=== PATIENT | female | born 2000 | race Caucasian/White ===

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

== ENCOUNTER 2024-03-24 15:13 | Emergency (ER) | payer OTHER, BC ==
[~2024-03-24] VITALS: Ht 175.3 cm; Wt 61.2 kg
[2024-03-24 15:21] VITALS: BP_SYST 112; PULSE 67; RESP 18; TEMP 98.3; O2SAT 97
[2024-03-24] MEDS ORDERED: LIDOCAINE 1%, 20 ML MDV 20 ML ONE (15:38)
[2024-03-24] MEDS: LIDOCAINE 1% 10 MG/ML, 20 ML MDV INJ ONE (15:45)
[2024-03-24] MEDS: DIPHTH,PERTUSS(ACELL),TET VAC 0.5 ML VIAL (Tdap) I.M. ONE (16:11)
[2024-03-24 16:23] VITALS: BP_SYST 116; PULSE 69; RESP 16; TEMP 98; O2SAT 98
== END 2024-03-24 16:20 | disposition home or self-care (01) ==
LOC: SED 15:13
DX: S61.212A Laceration without foreign body of right middle finger without damage to nail, initial encounter (principal); Z23 Encounter for immunization; W26.8XXA Contact with other sharp object(s), not elsewhere classified, initial encounter; Y93.89 Activity, other specified; Y92.89 Other specified places as the place of occurrence of the external cause; Y99.8 Other external cause status
CPT/HCPCS: 90715; 99283; J2001

== ENCOUNTER 2024-03-27 11:55 | Emergency (ER) | payer OTHER, BC ==
[~2024-03-27] VITALS: Ht 175.3 cm; Wt 61.2 kg
[2024-03-27 12:10] VITALS: BP_SYST 120; PULSE 71; RESP 18; TEMP 98; O2SAT 97
[2024-03-27 12:30] VITALS: BP_SYST 126; PULSE 91; RESP 16; TEMP 97; O2SAT 97
[2024-03-27 12:51] VITALS: BP_SYST 126; PULSE 91; RESP 16; TEMP 97; O2SAT 97
== END 2024-03-27 12:40 | disposition home or self-care (01) ==
LOC: SED 11:55
DX: S61.212D Laceration without foreign body of right middle finger without damage to nail, subsequent encounter (principal); X58.XXXD Exposure to other specified factors, subsequent encounter
CPT/HCPCS: 99281

== ENCOUNTER 2024-04-03 11:14 | Emergency (ER) | payer OTHER, BC ==
[~2024-04-03] VITALS: Ht 157.5 cm; Wt 52.2 kg
[2024-04-03 11:32] VITALS: BP_SYST 116; PULSE 85; RESP 22; TEMP 98.3; O2SAT 98
[2024-04-03] MEDS ORDERED: BACITRACIN 1 GM OINT TP ONE (12:46)
== END 2024-04-03 12:47 | disposition home or self-care (01) ==
LOC: SED 11:14
DX: S61.213D Laceration without foreign body of left middle finger without damage to nail, subsequent encounter (principal); X58.XXXD Exposure to other specified factors, subsequent encounter
CPT/HCPCS: 99281